=== PATIENT | female | born 1995 | race Caucasian/White ===

== ENCOUNTER 2022-01-06 14:00 | Emergency (ER) | payer OTHER ==
[2022-01-06 14:44] VITALS: BP 129/8; PULSE 102; RESP 18; TEMP 98.9
--- NOTE | 2022-01-06 16:14 | ED ---
General Adult HPI - General Chief complaint: Head Injury Stated complaint: syncope, hit head Time Seen by Provider: 01/06/22 15:47 Source: patient, family, RN notes reviewed Mode of arrival: ambulatory Limitations: no limitations - History of Present Illness Initial comments: Patient is a pleasant 26-year-old female sent to the emergency department outl ining syncopal episode. Patient had recent breast surgery. Patient was changing her bandages and felt unwell. Patient then passed out. Patient did fall to the ground and did strike her head. Patient is unclear how long she was unconscious for. Patient only has mild headache at this time. No neck or back pain. No chest pain or dyspnea. No abdominal pain. Patient was also changing her bandages one or 2 days ago with an episode associated with nausea and near syncope. Otherwise no sick be or near syncope. Both episodes while were changing bandages and patient felt unwell looking at the surgical site. Patient denies any problems with the surgical site and refuses evaluation of that site at this time. No calf pain or leg swelling. - Related Data Home Medications Medication Instructions Recorded Confirmed HYDROcodone/APAP 5-325MG [[place] 1 tab PO Q8H PRN 01/06/22 01/06/22 5-325] [place]-28 1 tab PO DAILY 01/06/22 01/06/22 Ondansetron [Zofran] 4 mg PO BID PRN 01/06/22 01/06/22 Allergies Allergy/AdvReac Type Severity Reaction Status Date / Time No Known Allergies Allergy Verified 01/06/22 16:55 Review of Systems ROS Statement: Those systems with pertinent positive or pertinent negative responses have been documented in the HPI. ROS Other: All systems not noted in ROS Statement are negative. Constitutional: Denies: fever Eyes: Denies: eye pain ENT: Denies: ear pain Respiratory: Denies: cough Cardiovascular: Denies: chest pain Endocrine: Denies: fatigue Gastrointestinal: Denies: abdominal pain Genitourinary: Denies: dysuria Musculoskeletal: Denies: back pain Skin: Denies: rash Neurological: Reports: as per HPI, headache. Denies: weakness, confusion Past Medical History Past Medical History: No Reported History History of Any Multi-Drug Resistant Organisms: None Reported Past Surgical History: Adenoidectomy, Orthopedic Surgery, Tonsillectomy Additional Past Surgical History / Comment(s): breast reduction Past Psychological History: No Psychological Hx Reported Smoking Status: Never smoker Past Alcohol Use History: None Reported Past Drug Use History: None Reported General Exam Limitations: no limitations General appearance: alert, in no apparent distress Head exam: Present: normocephalic Eye exam: Present: normal appearance, PERRL, EOMI. Absent: nystagmus ENT exam: Present: normal oropharynx Neck exam: Present: normal inspection. Absent: tenderness Respiratory exam: Present: normal lung sounds bilaterally Cardiovascular Exam: Present: regular rate, normal rhythm GI/Abdominal exam: Present: soft. Absent: tenderness Extremities exam: Present: normal inspection. Absent: pedal edema, calf tenderness Neurological exam: Present: alert, oriented X3, CN II-XII intact. Absent: motor sensory deficit Expanded Neurological exam: Present: protecting the airway Speech: Present: fluid speech Cranial nerves: EOM's Intact: Normal, Facial Sensation: Normal Sensory exam: Upper Extremity Light Touch: Normal, Lower Extremity Light Touch: Normal Motor strength exam: RUE: 5, LUE: 5, RLE: 5, LLE: 5 Eye Response: (4) open spontaneously Motor Response: (6) obeys commands Verbal Response: (5) oriented Psychiatric exam: Present: normal affect, normal mood Skin exam: Present: normal color Course Vital Signs 01/06/22 14:41 Temperature 98.9 F Pulse Rate 102 H Respiratory 18 Rate Blood Pressure 129/8 O2 Sat by Pulse 99 Oximetry Medical Decision Making - Medical Decision Making Patient reevaluated and updated. - Radiology Data Radiology results: report reviewed (CT brain reveals no acute process) Disposition Clinical Impression: Vasovagal syncope, Head injury Disposition: HOME SELF-CARE Condition: Stable Instructions (If sedation given, give patient instructions): Syncope (ED), Head Injury (ED) Additional Instructions: Please do follow-up to primary care physician in the next day or 2 for recheck. Please also follow-up with your surgeon. Return for chest pain or difficulty in breathing, uncontrolled headache, weakness, confusion, speech problem is, worsening or change in symptoms or any other concerns. Is patient prescribed a controlled substance at d/c from ED?: No Referrals: Agueda Stephen DO [Primary Care Provider] - 1-2 days Time of Disposition: 17:49
--- NOTE | 2022-01-06 16:38 | CT ---
EXAMINATION TYPE: CT brain wo con DATE OF EXAM: 01/06/2022 COMPARISON: None HISTORY: Syncope, hit head CT DLP: 1099.4 mGycm Automated exposure control for dose reduction was used. Ventricles of normal size. There is no mass effect or midline shift. There is no sign of intracranial hemorrhage. Calvarium is intact. Skull base is intact. There is normal aeration of the mastoid sinus es. IMPRESSION: Negative unenhanced head CT scan.
== END 2022-01-06 18:11 | disposition home or self-care (01) ==
LOC: EC 14:00
DX: S09.90XA Unspecified injury of head, initial encounter (principal); R55 Syncope and collapse; X58.XXXA Exposure to other specified factors, initial encounter
CPT/HCPCS: 70450; 99285